=== PATIENT | male | born 1960 | race Caucasian/White ===

== ENCOUNTER 2023-02-06 10:30 | Inpatient (IN) | payer OTHER ==
[~2023-02-06] VITALS: Ht 154.9 cm; Wt 111.1 kg
[2023-02-07] MEDS ORDERED: NORVASC5 MG PO (11:43)
[2023-02-07] MEDS ORDERED: ATORVASTATIN CA10 MG PO (11:43)
[2023-02-07] MEDS ORDERED: LASIX40 MG PO (11:43)
[2023-02-07] MEDS ORDERED: AVALIDE 300-121 EACH PO (11:44)
[2023-02-07] MEDS ORDERED: METFORMIN HCL500 M3 PO (11:44)
[2023-02-07] MEDS ORDERED: OZEMPIC0.25 MG/0. (11:44)
[2023-02-14] MEDS ORDERED: TRAM1TAB98 PO (13:08)
[2023-02-14] MEDS ORDERED: PEPCID AC20 MG PO (13:09)
== END 2023-02-14 14:20 | disposition home or self-care (01) | DRG 331 ==
LOC: O/R 02-11 07:36 → SURH 02-11 10:15
PROVIDERS: ADMIT Surgery; ATTEND Surgery
PROC: 07BB4ZZ Excision of Mesenteric Lymphatic, Percutaneous Endoscopic Approach (ICD-10-PCS; 2023-02-11)
PROC: 0DBU4ZZ Excision of Omentum, Percutaneous Endoscopic Approach (ICD-10-PCS; 2023-02-11)
PROC: 3E0F7SF Introduction of Other Gas into Respiratory Tract, Via Natural or Artificial Opening (ICD-10-PCS; 2023-02-11)
PROC: 07BC4ZZ Excision of Pelvis Lymphatic, Percutaneous Endoscopic Approach (ICD-10-PCS; 2023-02-11)
PROC: 0DTF4ZZ Resection of Right Large Intestine, Percutaneous Endoscopic Approach (ICD-10-PCS; principal; 2023-02-11 12:45)
DX: D12.3 Benign neoplasm of transverse colon (principal); R59.0 Localized enlarged lymph nodes; E11.9 Type 2 diabetes mellitus without complications; I11.9 Hypertensive heart disease without heart failure; E78.5 Hyperlipidemia, unspecified; E66.9 Obesity, unspecified